=== PATIENT | female | born 1960 | race Caucasian/White ===

== ENCOUNTER 2017-01-23 08:27 | Outpatient (CLI) | payer OTHER ==
--- NOTE | 2017-01-24 15:46 | Mammography Report ---
DIGITAL SCREENING MAMMOGRAM: 01/23/2017 CLINICAL INDICATION: A 56-year-old with history of late childbearing, history of benign cyst aspirati on, for screening. COMPARISON: 12/2015, 08/2014, 09/2012, 07/2011, 02/2010, 12/2008, 08/2007. TECHNIQUE: Routine CC and MLO projections were obtained of the breasts. FINDINGS: The breasts again demonstrate heterogeneously dense fibroglandular parenchyma bilaterally. Coarse and punctate, typically benign calcifications are present. No suspicious masses, clustered mi crocalcifications, or regions of architectural distortion are identified. IMPRESSION: BENIGN FINDINGS. RECOMMENDATION: ROUTINE ANNUAL SCREENING UNLESS OTHERWISE CLINICALLY INDICATED. BIRADS CATEGORY 2-BENIGN FINDINGS. STANDARD QUALIFYING STATEMENTS 1. This examination was reviewed with the aid of Computer-Aided Detection (CAD). 2. A negative or benign imaging report should not delay biopsy if clinically suspicious findings are present. Consider surgical consultation if warranted. More than 5% of cancers are not identified by i maging. 3. Dense breasts may obscure an underlying neoplasm. JOB #: [id number] EXT JOB #:[id number]
== END 2017-01-23 08:28 | disposition home or self-care (01) ==
LOC: DI 08:27
PROVIDERS: ATTEND Nurse Practitioner Primary Care
DX: Z12.31 Encounter for screening mammogram for malignant neoplasm of breast (principal)
CPT/HCPCS: 77067

== ENCOUNTER 2018-05-14 08:52 | Outpatient (CLI) | payer OTHER ==
--- NOTE | 2018-05-23 14:00 | Mammography Report ---
Reason: ROUTINE MAMMO Procedure Date: 05/14/2018 Accession Number: [id number] / [id number] Procedure: [facility] - Screening Mammo w/[facility] CPT Code: FULL RESULT: EXAM: Screening Mammo w[facility] DATE: 05/14/2018 9:15 AM CLINICAL HISTORY: 57-year-old female with history of late childbearing and history of biopsy with benign pathology results. TECHNIQUE: Bilateral CC and MLO views were obtained. COMPARISON: 10/16/2012, 01/23/2017, 01/16/2016, 09/16/2014. FINDINGS: The breasts demonstrate heterogeneously dense fibroglandular parenchyma bilaterally. Coarse typically benign calcifications are identified bilaterally. A 5 mm hyperdense well-circumscribed nodule with microcalcifications appears stable in size dating back to 2012. No suspicious masses, clustered microcalcifications, or regions of architectural distortion are identified. IMPRESSION: Benign findings RECOMMENDATION: Routine annual screening unless otherwise clinically indicated. BIRADS CATEGORY 2: Benign findings STANDARD QUALIFYING STATEMENTS: 1. This examination was not reviewed with the aid of Computer-Aided Detection (CAD). 2. A negative or benign imaging report should not delay biopsy if clinically suspicious findings are present. Consider surgical consultation if warrented. More than 5% of cancers are not identified by imaging. 3. Dense breasts may obscure an underlying neoplasm. 4. This examination was reviewed with the aid of 3D breast imaging (tomosynthesis).
== END 2018-05-14 08:53 | disposition home or self-care (01) ==
LOC: DI 08:52
DX: Z12.31 Encounter for screening mammogram for malignant neoplasm of breast (principal)
CPT/HCPCS: 77063; 77067

== ENCOUNTER 2021-03-16 10:14 | Outpatient (CLI) | payer SELFPAY | END 2021-03-16 10:15 | disposition home or self-care (01) | LOC: LAB 10:14 | DX: Z01.89 Encounter for other specified special examinations (principal) | CPT/HCPCS: 36415 ==

== ENCOUNTER 2022-03-08 14:43 | Outpatient (CLI) | payer SELFPAY | END 2022-03-08 14:44 | disposition home or self-care (01) | LOC: LAB 14:43 | PROVIDERS: ATTEND Registered Nurse Diabetes Educator | DX: Z01.89 Encounter for other specified special examinations (principal) | CPT/HCPCS: 36415 ==

== ENCOUNTER 2023-02-19 10:20 | Outpatient (CLI) | payer SELFPAY | END 2023-02-19 10:21 | disposition home or self-care (01) | LOC: LAB 10:20 | DX: Z01.89 Encounter for other specified special examinations (principal); Z80.0 Family history of malignant neoplasm of digestive organs | CPT/HCPCS: 36415 ==

== ENCOUNTER 2024-05-11 11:33 | Outpatient (CLI) | payer SELFPAY | END 2024-05-11 11:34 | disposition home or self-care (01) | LOC: LAB 11:33 | PROVIDERS: ATTEND Internal Medicine Gastroenterology | DX: Z01.89 Encounter for other specified special examinations (principal) | CPT/HCPCS: 36415 ==